=== PATIENT | female | born 1995 | race Caucasian/White ===

== ENCOUNTER 2016-07-27 12:14 | Inpatient (IN) | payer BC, OTHER ==
[~2016-07-27] VITALS: Ht 160 cm; Wt 52.2 kg
[2016-07-27 18:02] LABS: *URINE HCG, QUAL NEGATIVE (NEGATIVE)
[2016-07-27 18:05] VITALS: BP 101/60
[2016-07-27 18:11] LABS: *AMPHETAMINE, URINE NEGATIVE (NEGATIVE); *BARBITURATE, URINE NEGATIVE (NEGATIVE); *CANNABINOID, URINE POSITIVE (NEGATIVE); *COCCAINE, URINE NEGATIVE (NEGATIVE); *OPIATE, URINE POSITIVE (NEGATIVE); *PHENCYCLIDINE SCREEN,URINE NEGATIVE (NEGATIVE)
[2016-07-27] MEDS ORDERED: DICYCLOMINE HCL 20 MG TABLET PO PRN (18:45)
[2016-07-27] MEDS ORDERED: ACETAMINOPHEN 325 MG TABLET PO PRN (18:45)
[2016-07-27] MEDS ORDERED: diphenhydrAMINE 50 MG CAPSULE PO PRN (18:45)
[2016-07-27] MEDS ORDERED: LOPERAMIDE HCL 2 MG CAPSULE PO PRN ×2 (18:45)
[2016-07-27] MEDS ORDERED: ONDANSETRON 4 MG/2 ML VIAL IM PRN (18:45)
[2016-07-27] MEDS ORDERED: MIRALAX 17 GM POWD.PACK PO PRN (18:45)
[2016-07-27] MEDS ORDERED: HYDROXYZINE PAMOATE 25 MG CAPSULE PO PRN (18:45)
[2016-07-27] MEDS ORDERED: MAG HYDROX/AL HYDROX/SIMETH 30 ML LIQUID UDC PO PRN (18:45)
[2016-07-27] MEDS ORDERED: MAGNESIUM HYDROXIDE 30 ML LIQUID UDC PO PRN (18:45)
[2016-07-27] MEDS ORDERED: BUPRENORPHINE HCL 2 MG TAB.SUBL SL PRN (18:45)
[2016-07-27] MEDS ORDERED: CLONIDINE HCL 0.1 MG TABLET PO PRN (18:45)
[2016-07-27 20:00] VITALS: BP 109/66
[2016-07-27] MEDS ORDERED: LORAZEPAM 1 MG TABLET PO SCH (21:00)
[2016-07-27 21:31] LABS: BASOPHILS % (AUTO) 0.4 % (0.0-2.0); EOSINOPHILS # (AUTO) 0.1 K/uL (0.0-0.7); EOSINOPHILS % (AUTO) 2.2 % (0.0-7.0); HEMATOCRIT 45.9 % (31.2-41.9); LYMPHOCYTES # (AUTO) 1.5 K/uL (40.0-85.0); MEAN CORPUSCULAR HGB CONC 35 g/dL (32.3-35.6); MONOCYTES # (AUTO) 0.3 K/uL (2.0-10.0); MONOCYTES % (AUTO) 5.8 % (0-11); NEUTROPHILS # (AUTO) 4.1 K/uL (1.8-8.9); NEUTROPHILS % (AUTO) 65.6 % (31.5-64.5); PLATELET COUNT (AUTO) 306 K/uL (179-408); RED BLOOD CELL COUNT(AUTO) 5.15 MIL/uL (3.63-4.92); RED CELL DISTRIBUTION WIDTH 12.4 % (12.3-17.7)
[2016-07-27 21:42] LABS: ETHANOL < 3 MG/DL (0-0)
[2016-07-27 21:44] LABS: ALANINE AMINOTRANSFERASE 21 U/L (14-59); ALBUMIN 4.9 g/dL (3.4-5.0); ALKALINE PHOSPHATASE 58 U/L (50-136); ASPARTATE AMINOTRANSFERASE 20 U/L (15-37); BILIRUBIN,TOTAL 0.6 mg/dL (0.2-1.0); CALCIUM 9.7 mg/dL (8.5-10.1); CARBON DIOXIDE 30 mmol/L (21-32); CHLORIDE 101 mmol/L (98-107); CREATININE 0.7 mg/dL (0.6-1.3); GFR 107 mL/min (>60); GLUCOSE 92 mg/dL (74-106); MAGNESIUM 2.1 mg/dL (1.8-2.4); SODIUM SERUM 140 mmol/L (136-145); TOTAL PROTEIN, SERUM 8.8 g/dL (6.4-8.2); UREA NITROGEN, BLOOD 6 mg/dL (7-18)
[2016-07-27 21:52] LABS: THYROID STIMULATING HORMONE 0.404 mIU/mL (0.358-3.740)
[2016-07-27 21:55] LABS: HIV-1 p24 ANTIGEN NON REACTIVE (NONREACTIVE); HIV-1/2 ANTIBODY NON REACTIVE (NONREACTIVE)
[2016-07-27] MEDS: METHOCARBAMOL 750 MG TABLET PO PRN (22:13)
[2016-07-27] MEDS: ONDANSETRON ODT 4 MG TAB.RAPDIS SL PRN (22:14)
[2016-07-27] MEDS ORDERED: LORAZEPAM 1 MG TABLET ONE (22:17)
[2016-07-27] MEDS ORDERED: diphenhydrAMINE 50 MG CAPSULE ONE (22:55)
[2016-07-28] VITALS: BP 101/61
[2016-07-28 04:00] VITALS: BP 121/84
[2016-07-28] MEDS ORDERED: TUBERCULIN,PURIF.PROT.DERIV. 5 TU/0.1 ML TEST ID ONE (09:00)
[2016-07-28] MEDS ORDERED: BUPRENORPHINE HCL 2 MG TAB.SUBL SL SCH (09:00)
[2016-07-28] MEDS: LORAZEPAM 1 MG TABLET PO SCH ×4 (09:55→21:12)
[2016-07-28] MEDS: GABAPENTIN 300 MG CAPSULE PO SCH ×3 (09:55→21:12)
[2016-07-28] MEDS: MULTIVITAMINS,THERAPEUTIC TABLET PO SCH (09:55)
[2016-07-28 10:09] VITALS: BP 83/42
[2016-07-28 12:00] VITALS: BP 81/43
[2016-07-28] MEDS ORDERED: BUPRENORPHINE HCL 2 MG TAB.SUBL SL PRN (13:15)
[2016-07-28 16:06] VITALS: BP 95/63
[2016-07-28] MEDS: BUPRENORPHINE HCL 2 MG TAB.SUBL SL SCH ×2 (16:15→21:12)
[2016-07-28 20:00] VITALS: BP 92/62
[2016-07-28] MEDS: ONDANSETRON ODT 4 MG TAB.RAPDIS SL PRN (21:12)
[2016-07-28] MEDS: METHOCARBAMOL 750 MG TABLET PO PRN (21:12)
[2016-07-28] MEDS: QUETIAPINE FUMARATE 100 MG TABLET PO SCH (22:08)
[2016-07-29] VITALS: BP 104/62
[2016-07-29 04:00] VITALS: BP 87/51
[2016-07-29 08:00] VITALS: BP 98/66
[2016-07-29] MEDS ORDERED: BUPRENORPHINE HCL 2 MG TAB.SUBL SL SCH ×3 (09:00→15:00)
[2016-07-29] MEDS: LORAZEPAM 1 MG TABLET PO SCH ×3 (09:23→20:51)
[2016-07-29] MEDS: GABAPENTIN 300 MG CAPSULE PO SCH ×2 (09:23→14:03)
[2016-07-29] MEDS: MULTIVITAMINS,THERAPEUTIC TABLET PO SCH (09:23)
[2016-07-29] MEDS: DOCUSATE SODIUM 250 MG CAPSULE PO SCH (11:04)
[2016-07-29 12:00] VITALS: BP 106/63
[2016-07-29] MEDS: BUPRENORPHINE HCL 2 MG TAB.SUBL SL SCH ×2 (14:04→20:51)
[2016-07-29 16:00] VITALS: BP 106/64
[2016-07-29] MEDS ORDERED: BISACODYL 5 MG TABLET.DR PO PRN (16:30)
[2016-07-29] MEDS ORDERED: MAGNESIUM CITRATE 296 ML BOTTLE PO PRN (16:30)
[2016-07-29] MEDS ORDERED: BISACODYL 10 MG SUPP.RECT RC PRN (16:30)
[2016-07-29 20:00] VITALS: BP 124/79
[2016-07-29] MEDS: IBUPROFEN 600 MG TABLET PO PRN (20:52)
[2016-07-29] MEDS ORDERED: GABAPENTIN 300 MG CAPSULE PO SCH (21:00)
[2016-07-29] MEDS: QUETIAPINE FUMARATE 100 MG TABLET PO SCH (22:12)
[2016-07-30] VITALS: BP 104/69
[2016-07-30 04:00] VITALS: BP 89/54
[2016-07-30 04:06] LABS: HCV AB <0.1 s/co ratio (0.0-0.9); HEPATITIS B CORE AB, IgM Negative (Negative); HEPATITIS B SURFACE AG Negative (Negative)
[2016-07-30 08:00] VITALS: BP 114/64
[2016-07-30] MEDS ORDERED: GABAPENTIN 300 MG CAPSULE PO SCH (09:00)
[2016-07-30] MEDS ORDERED: BUPRENORPHINE HCL 2 MG TAB.SUBL SL SCH (09:00)
[2016-07-30] MEDS: MULTIVITAMINS,THERAPEUTIC TABLET PO SCH (09:09)
[2016-07-30] MEDS: BUPRENORPHINE HCL 2 MG TAB.SUBL SL SCH ×3 (09:09→20:44)
[2016-07-30] MEDS: LORAZEPAM 1 MG TABLET PO SCH ×2 (09:10→20:36)
[2016-07-30] MEDS: DOCUSATE SODIUM 250 MG CAPSULE PO SCH (09:10)
[2016-07-30] MEDS: IBUPROFEN 600 MG TABLET PO PRN ×2 (11:17→20:43)
[2016-07-30] MEDS: METHOCARBAMOL 750 MG TABLET PO PRN (11:18)
[2016-07-30 12:00] VITALS: BP 117/87
[2016-07-30] MEDS ORDERED: BUPRENORPHINE HCL 2 MG TAB.SUBL SL ONE (15:30)
[2016-07-30 16:00] VITALS: BP 102/78
[2016-07-30 20:00] VITALS: BP 119/86
[2016-07-30] MEDS: ONDANSETRON ODT 4 MG TAB.RAPDIS SL PRN (20:36)
[2016-07-30] MEDS: DOCUSATE SODIUM 100 MG CAPSULE PO SCH (20:38)
[2016-07-30] MEDS: GABAPENTIN 300 MG CAPSULE PO SCH (20:39)
[2016-07-30] MEDS: BACLOFEN 10 MG TABLET PO SCH (20:39)
[2016-07-30] MEDS: QUETIAPINE FUMARATE 100 MG TABLET PO SCH (22:05)
[2016-07-31] VITALS: BP 104/58
[2016-07-31 08:00] VITALS: BP 104/70
[2016-07-31] MEDS: IBUPROFEN 600 MG TABLET PO PRN ×2 (08:21→18:40)
[2016-07-31] MEDS: GABAPENTIN 300 MG CAPSULE PO SCH ×2 (08:22→20:52)
[2016-07-31] MEDS: BACLOFEN 10 MG TABLET PO SCH ×3 (08:22→20:48)
[2016-07-31] MEDS: MULTIVITAMINS,THERAPEUTIC TABLET PO SCH (08:22)
[2016-07-31] MEDS ORDERED: BUPRENORPHINE HCL 2 MG TAB.SUBL SL SCH ×2 (09:00)
[2016-07-31] MEDS ORDERED: LORAZEPAM 1 MG TABLET PO SCH (09:00)
[2016-07-31] MEDS: DOCUSATE SODIUM 250 MG CAPSULE PO SCH (09:00)
[2016-07-31] MEDS: ONDANSETRON ODT 4 MG TAB.RAPDIS SL PRN ×3 (12:49→22:24)
[2016-07-31 13:29] VITALS: BP 118/74
[2016-07-31 14:27] LABS: *AMPHETAMINE, URINE NEGATIVE (NEGATIVE); *BARBITURATE, URINE NEGATIVE (NEGATIVE); *CANNABINOID, URINE NEGATIVE (NEGATIVE); *COCCAINE, URINE NEGATIVE (NEGATIVE); *OPIATE, URINE NEGATIVE (NEGATIVE); *PHENCYCLIDINE SCREEN,URINE NEGATIVE (NEGATIVE)
[2016-07-31 17:50] VITALS: BP 91/64
[2016-07-31 20:00] VITALS: BP 115/77
[2016-07-31] MEDS: DOCUSATE SODIUM 100 MG CAPSULE PO SCH (20:52)
[2016-07-31] MEDS: QUETIAPINE FUMARATE 100 MG TABLET PO SCH (21:34)
[2016-07-31] MEDS ORDERED: DIPH50CA37 PO (22:35)
[2016-07-31] MEDS ORDERED: Baclofen PO (22:35)
[2016-07-31] MEDS ORDERED: HYDR-3895 PO (22:35)
[2016-07-31] MEDS ORDERED: DICY20TA28 PO (22:35)
[2016-07-31] MEDS ORDERED: Docusate Sodium PO (22:35)
[2016-07-31] MEDS ORDERED: QUET100T PO (22:35)
[2016-07-31] MEDS ORDERED: Ibuprofen PO (22:35)
[2016-08-01] VITALS: BP 97/41
[2016-08-01] MEDS: ONDANSETRON ODT 4 MG TAB.RAPDIS SL PRN (02:22)
[2016-08-01 08:14] VITALS: BP 100/68
[2016-08-01] MEDS: IBUPROFEN 600 MG TABLET PO PRN (09:06)
[2016-08-01] MEDS: DOCUSATE SODIUM 250 MG CAPSULE PO SCH (09:06)
[2016-08-01] MEDS: GABAPENTIN 300 MG CAPSULE PO SCH (09:07)
[2016-08-01] MEDS: MULTIVITAMINS,THERAPEUTIC TABLET PO SCH (09:07)
[2016-08-01] MEDS: BACLOFEN 10 MG TABLET PO SCH (09:07)
== END 2016-08-01 09:20 | disposition other institution (70) | DRG 895 ==
LOC: SRC 16:19
PROVIDERS: ADMIT Internal Medicine; ATTEND Internal Medicine
PROC: HZ2ZZZZ Detoxification Services for Substance Abuse Treatment (ICD-10-PCS; principal; 2016-07-27)
PROC: HZ31ZZZ Individual Counseling for Substance Abuse Treatment, Behavioral (ICD-10-PCS; 2016-07-30)
DX: F11.23 Opioid dependence with withdrawal (principal); Z59.0 Homelessness; Z81.4 Family history of other substance abuse and dependence; Z81.8 Family history of other mental and behavioral disorders; F41.9 Anxiety disorder, unspecified; G47.00 Insomnia, unspecified; F17.210 Nicotine dependence, cigarettes, uncomplicated; K59.03 Drug induced constipation; F13.230 Sedative, hypnotic or anxiolytic dependence with withdrawal, uncomplicated; F12.90 Cannabis use, unspecified, uncomplicated
CPT/HCPCS: 36415; 80307; 80346; 80349; 80361; 83735; 84443; 84703; 85025; 86580; 86592; 86705; 86803; 87340; 87806; A4663; G6040-TC; Q0162; Q0163